=== PATIENT | male | born 1990 | race Caucasian/White ===

== ENCOUNTER 2020-08-03 22:57 | Emergency (ER) | payer OTHER ==
[~2020-08-03] VITALS: Ht 182.9 cm; Wt 68.2 kg
--- NOTE | 2020-08-03 23:48 | PHYS DOC ---
Past Medical History Past Medical History: No Pertinent History Past Surgical History: Other Additional Past Surgical Histo: "BROKEN ELBOW" Smoking Status: Never Smoker Alcohol Use: None General Adult EDM: Chief Complaint: MECHANICAL FALL HPI: HPI: Patient is a 29 year old male presents by EMS for evaluation after fall and hitting his head. Patient states tripped fell back and hit his head. Patient thinks he may have had some positive loss of consciousness. On exam patient is alert oriented x4. He has a 7 cm laceration to the posterior scalp. There is no active bleeding. Patient states tetanus is up-to-date. Review of Systems: Review of Systems: Constitutional: Denies fever or chills. [] Eyes: Denies change in visual acuity. [] HENT: Denies nasal congestion or sore throat. [] Respiratory: Denies cough or shortness of breath. [] Cardiovascular: Denies chest pain or edema. [] GI: Denies abdominal pain, nausea, vomiting, bloody stools or diarrhea. [] : Denies dysuria. [] Musculoskeletal: Denies back pain or joint pain. [] Integument: Denies rash. [Positive laceration] Neurologic: Denies headache, focal weakness or sensory changes. [] Endocrine: Denies polyuria or polydipsia. [] Lymphatic: Denies swollen glands. [] Psychiatric: Denies depression or anxiety. [] Heart Score: Risk Factors: Risk Factors: DM, Current or recent (<one month) smoker, HTN, HLP, family history of CAD, obesity. Risk Scores: Score 0 - 3: 2.5% MACE over next 6 weeks - Discharge Home Score 4 - 6: 20.3% MACE over next 6 weeks - Admit for Clinical Observation Score 7 - 10: 72.7% MACE over next 6 weeks - Early Invasive Strategies Allergies: Allergies: Allergies Coded Allergies Type Severity Reaction Last Updated Verified No Known Drug Allergies 08/03/20 No Physical Exam: PE: Constitutional: Well developed, well nourished, no acute distress, non-toxic appearance. [] HENT: Normocephalic, atraumatic, bilateral external ears normal, oropharynx moist, no oral exudates, nose normal. [] Eyes: PERRLA, EOMI, conjunctiva normal, no discharge. [] Neck: Normal range of motion, no tenderness, supple, no stridor. [] Cardiovascular:Heart rate regular rhythm, no murmur [] Lungs & Thorax: Bilateral breath sounds clear to auscultation [] Abdomen: Bowel sounds normal, soft, no tenderness, no masses, no pulsatile masses. [] Skin: Warm, dry, no erythema, no rash. [] Back: No tenderness, no CVA tenderness. [] Extremities: No tenderness, no cyanosis, no clubbing, ROM intact, no edema. [] Neurologic: Alert and oriented X 3, normal motor function, normal sensory function, no focal deficits noted. [] Psychologic: Affect normal, judgement normal, mood normal. [] Current Patient Data: Vital Signs: Vital Signs Date Time Temp Pulse Resp B/P (MAP) Pulse Ox O2 Delivery O2 Flow Rate FiO2 08/03/20 22:58 98.1 77 15 144/75 (98) 100 Room Air 98.1 EKG: EKG: [] Radiology/Procedures: Radiology/Procedures: [] Impression: IMPRESSION: Posterior right paramidline parietal scalp contusion/laceration approaching the vertex. No associated depressed calvarial fracture or acute intracranial hemorrhage. Course & Med Decision Making: Course & Med Decision Making Pertinent Labs and Imaging studies reviewed. (See chart for details) [] . Procedure Laceration 7 cm posterior scalp was repaired with 7 fadi. no foreign bodies identified No complications patient tolerated procedure no active bleeding .Patient's pain treated with Tylenol. He tolerated p.o. without issue Dragon Disclaimer: Dragon Disclaimer: This electronic medical record was generated, in whole or in part, using a voice recognition dictation system. Departure Departure Impression: Primary Impression: Head injury Additional Impression: Scalp laceration Disposition: 01 HOME, SELF-CARE Condition: STABLE Referrals: NO PCP (PCP) Patient Instructions: Laceration Care, Adult Justicifation of Admission Dx: Justifications for Admission: Justification of Admission Dx: N/A JACQUELINE MARES DO Aug 03, 2020 23:48
--- NOTE | 2020-08-04 00:05 | RAD ---
STUDY: CT head without contrast INDICATION: Head injury. COMPARISON: None. TECHNIQUE: Axial CT imaging through the head without the use of intravenous contrast. Sagittal and coronal reformats were obtained. One or more of the following individualized dose reduction techniques were utilized for this examination: 1. Automated exposure control 2. Adjustment of the mA and/or kV according to patient size 3. Use of iterative reconstruction technique. FINDINGS: No acute intracranial hemorrhage. Ybarra-white matter differentiation is maintained. No localized mass effect, midline shift or hydrocephalus. High posterior parietal scalp contusion/laceration located to the right of midline. No associated depressed calvarial fracture. Limited assessment for subtle nondisplaced fractures given slice thickness. Normally aerated mastoid air cells and middle ears. No layering fluid within the visualized paranasal sinuses. IMPRESSION: Posterior right paramidline parietal scalp contusion/laceration approaching the vertex. No associated depressed calvarial fracture or acute intracranial hemorrhage. Electronically signed by: LEANDER ELLIOTT MD (08/04/2020 12:02 AM) [id number]
[2020-08-04] MEDS ORDERED: ACETAMINOPHEN 325 MG TABLET. PO ONE (00:30)
[2020-08-04 00:58] VITALS: BP 138/72
== END 2020-08-04 01:12 | disposition home or self-care (01) ==
LOC: EEVIPCON 22:57 → ER 22:57
DX: S01.01XA Laceration without foreign body of scalp, initial encounter (principal); R51 Headache; W01.198A Fall on same level from slipping, tripping and stumbling with subsequent striking against other object, initial encounter; Y93.89 Activity, other specified; Y92.89 Other specified places as the place of occurrence of the external cause; Y99.8 Other external cause status
CPT/HCPCS: 12002; 70450; 99285